=== PATIENT | female | born 1995 | race Caucasian/White ===

== ENCOUNTER 2017-08-14 | Inpatient (IN) | payer OTHER ==
[~2017-08-14] VITALS: Ht 170.2 cm; Wt 152.7 kg
[~2017-08-14] MED LIST: Adipex-P37.5 MG PO; BUSP15 PO; CEPH500 PO; CHOL10002 PO; IRON; METF500 PO; METF500C PO; MULVITMIND PO; RXDIPATR PO; RXONDA4ODT MM; Zofran Odt4 MG SL; [UNRECOGNIZED DRUG - OTHER] PO
[2017-08-14 00:59] LABS: BASOPHILS ABSOLUTE AUTO 0.01 K/mm3 (0.00-0.23); BASOPHILS PERCENT AUTO 0 % (0-2); EOSINOPHILS PERCENT AUTO 0 % (0-6); Hematocrit 43.4 % (33.0-51.0); Hemoglobin 13.6 g/dL (11.5-16.0); IMMATURE GRAN ABSOLUTE AUTO 0.04 K/mm3 (0.00-0.10); IMMATURE GRAN PERCENT AUTO 1 % (0-1); LYMPHOCYTES ABSOLUTE AUTO 1.06 K/mm3 (0.84-5.20); LYMPHOCYTES PERCENT AUTO 19 % (21-46); MONOCYTES ABSOLUTE AUTO 0.34 K/mm3 (0.16-1.47); MONOCYTES PERCENT AUTO 6 % (4-13); Mean Corpuscular HGB 26.4 pg (26.0-34.0); Mean Corpuscular HGB Conc 31.3 g/dL (31.5-36.5); Mean Corpuscular Volume 84 fL (80-100); Mean Platelet Volume 9.8 fL (9.1-12.4); NEUTROPHILS ABSOLUTE AUTO 4.05 K/mm3 (1.96-9.15); NEUTROPHILS PERCENT AUTO 74 % (41-73); Platelet Count 290 K/mm3 (150-400); RDW Coefficient Variation 15.3 % (11.7-14.2); RDW Standard Deviation 46.8 fL (35.1-46.3); Red Blood Cell Count 5.16 M/mm3 (3.80-5.20)
[2017-08-14 01:15] LABS: Alanine Aminotransfer (ALT/SGP 54 U/L (12-78); Albumin, Blood 3.2 g/dL (3.4-5.0); Albumin/Globulin Ratio 0.6 (0.8-1.8); Alk Phos 88 U/L (50-136); Anion Gap 8 mmol/L (6-16); Aspartate Aminotrans (AST/SGOT 74 U/L (12-37); Bilirubin, Total 0.2 mg/dL (0.1-1.0); Blood Urea Nitrogen 8 mg/dL (8-24); Bun/Creatinine Ratio 10.3 (12.0-20.0); CO2, Blood 25 mmol/L (21-32); Chloride, Blood 102 mmol/L (98-108); Creatinine, Blood 0.78 mg/dL (0.40-1.00); Globulin, Blood 5.5 g/dL (2.2-4.0); Glomerular Filtration Rate >60 (60-); Glucose, Blood 146 mg/dL (70-99); Potassium, Blood 3.9 mmol/L (3.5-5.5); Sodium, Blood 135 mmol/L (136-145); Total Protein, Blood 8.7 g/dL (6.4-8.2)
[2017-08-14 01:36] LABS: Influenza A Positive (NEGATIVE); Influenza B Negative (NEGATIVE)
[2017-08-14 02:23] LABS: Source, Urine Clean Catch
[2017-08-14 02:25] LABS: Bilirubin, Urine Neg (Neg); Blood, Urine 2+ (Neg); Glucose Qualitative, Urine Neg (Neg); Ketones, Urine 1+ (Neg); Leukocyte Esterase, Urine 2+ (Neg); Nitrite, Urine Neg (Neg); Protein, Urine 2+ (Neg); Urobilinogen, Urine NORM (Normal); pH, Urine 6.5 (5.0-8.0)
[2017-08-14 02:36] LABS: Amorphous Light (0-Heavy); Appearance, Urine Hazy (Clear); Bacteria Mod /hpf; Color, Urine Yellow (P-Yellow); Red Blood Cells, Urine 0-2 /hpf (0-2); Squamous Epithelial Cells Few /hpf (Few)
[2017-08-14 06:51] LABS: BASOPHILS PERCENT AUTO 0 % (0-2); EOSINOPHILS PERCENT AUTO 0 % (0-6); Hematocrit 38.7 % (33.0-51.0); IMMATURE GRAN ABSOLUTE AUTO 0.03 K/mm3 (0.00-0.10); IMMATURE GRAN PERCENT AUTO 1 % (0-1); LYMPHOCYTES ABSOLUTE AUTO 1.21 K/mm3 (0.84-5.20); LYMPHOCYTES PERCENT AUTO 32 % (21-46); MONOCYTES ABSOLUTE AUTO 0.32 K/mm3 (0.16-1.47); MONOCYTES PERCENT AUTO 8 % (4-13); Mean Corpuscular HGB 26.4 pg (26.0-34.0); Mean Corpuscular Volume 85 fL (80-100); Mean Platelet Volume 9.5 fL (9.1-12.4); NEUTROPHILS ABSOLUTE AUTO 2.25 K/mm3 (1.96-9.15); NEUTROPHILS PERCENT AUTO 59 % (41-73); Platelet Count 235 K/mm3 (150-400); RDW Coefficient Variation 15.5 % (11.7-14.2); RDW Standard Deviation 47.9 fL (35.1-46.3); Red Blood Cell Count 4.55 M/mm3 (3.80-5.20); White Blood Cell Count 3.81 K/mm3 (4.00-11.30)
[2017-08-14 07:13] LABS: Alanine Aminotransfer (ALT/SGP 44 U/L (12-78); Albumin, Blood 2.7 g/dL (3.4-5.0); Albumin/Globulin Ratio 0.6 (0.8-1.8); Alk Phos 75 U/L (50-136); Anion Gap 8 mmol/L (6-16); Aspartate Aminotrans (AST/SGOT 59 U/L (12-37); Bilirubin, Total 0.2 mg/dL (0.1-1.0); Blood Urea Nitrogen 7 mg/dL (8-24); Bun/Creatinine Ratio 10.9 (12.0-20.0); CO2, Blood 24 mmol/L (21-32); Calcium, Blood 7.4 mg/dL (8.5-10.1); Chloride, Blood 106 mmol/L (98-108); Creatinine, Blood 0.64 mg/dL (0.40-1.00); Globulin, Blood 4.6 g/dL (2.2-4.0); Glomerular Filtration Rate >60 (60-); Glucose, Blood 100 mg/dL (70-99); Potassium, Blood 3.6 mmol/L (3.5-5.5); Sodium, Blood 138 mmol/L (136-145); Total Protein, Blood 7.3 g/dL (6.4-8.2)
[2017-08-14 11:47] LABS: Source, Urine Clean Catch
[2017-08-14 11:53] LABS: Bilirubin, Urine Neg (Neg); Blood, Urine 3+ (Neg); Glucose Qualitative, Urine Neg (Neg); Ketones, Urine Neg (Neg); Leukocyte Esterase, Urine Neg (Neg); Nitrite, Urine Neg (Neg); Protein, Urine Neg (Neg); Urobilinogen, Urine NORM (Normal); pH, Urine 6.5 (5.0-8.0)
[2017-08-14 12:06] LABS: Appearance, Urine Clear (Clear); Color, Urine Yellow (P-Yellow)
[2017-08-14 12:07] LABS: Bacteria Not Seen /hpf; Red Blood Cells, Urine 0-2 /hpf (0-2); Squamous Epithelial Cells Few /hpf (Few); White Blood Cells, Urine Not Seen /hpf (0-5)
[2017-08-16 04:38] LABS: Hematocrit 38.9 % (33.0-51.0); Hemoglobin 12.1 g/dL (11.5-16.0); Mean Corpuscular HGB 26.3 pg (26.0-34.0); Mean Corpuscular HGB Conc 31.1 g/dL (31.5-36.5); Mean Corpuscular Volume 85 fL (80-100); Platelet Count 232 K/mm3 (150-400); RDW Coefficient Variation 15.7 % (11.7-14.2); RDW Standard Deviation 48.1 fL (35.1-46.3); White Blood Cell Count 6.18 K/mm3 (4.00-11.30)
[2017-08-16 04:58] LABS: Anion Gap 6 mmol/L (6-16); Blood Urea Nitrogen 7 mg/dL (8-24); Bun/Creatinine Ratio 12.2 (12.0-20.0); CO2, Blood 30 mmol/L (21-32); Calcium, Blood 8.2 mg/dL (8.5-10.1); Chloride, Blood 102 mmol/L (98-108); Creatinine, Blood 0.57 mg/dL (0.40-1.00); Glomerular Filtration Rate >60 (60-); Glucose, Blood 114 mg/dL (70-99); Potassium, Blood 3.9 mmol/L (3.5-5.5); Sodium, Blood 138 mmol/L (136-145)
[2017-08-16] MEDS ORDERED: ALBUTEROL INH (12:29)
[2017-08-16] MEDS ORDERED: DOXY100 PO (12:31)
[2017-08-16] MEDS ORDERED: HYDR1TAB94 PO (12:32)
[2017-08-16] MEDS ORDERED: OSEL75CA PO (12:33)
[2017-08-16] MEDS ORDERED: PRED20 PO (12:34)
== END 2017-08-16 15:20 | disposition home or self-care (01) | DRG 871 ==
LOC: ER → PCU 03:08 → ERHOLD 03:08 → PCU 10:55
PROVIDERS: Emergency Medicine; Internal Medicine
DX: A41.9 Sepsis, unspecified organism (principal); J10.00 Influenza due to other identified influenza virus with unspecified type of pneumonia; J96.01 Acute respiratory failure with hypoxia; Z68.42 Body mass index [BMI] 45.0-49.9, adult; E86.0 Dehydration; R19.7 Diarrhea, unspecified; E66.9 Obesity, unspecified; J45.909 Unspecified asthma, uncomplicated; Z88.0 Allergy status to penicillin
CPT/HCPCS: 36415; 71046; 80048; 80053; 81001; 81025; 83605; 84145; 85025; 85027; 87040; 87070; 87077; 87086; 87186; 87205; 87804; 93005; 93010; 94640; 94644; 94760; 94761; 96361; 96372; 96374; 96375; 99285; J0696; J1650; J2405; J2930; J3010; J7030

== ENCOUNTER 2021-02-25 19:26 | Inpatient (IN) | payer OTHER ==
[~2021-02-25] VITALS: Ht 175.3 cm; Wt 172.4 kg
[~2021-02-25 19:26] MED LIST changes: +ALBUTEROL INH; +DOXY100 PO; +HYDR1TAB94 PO; +OSEL75CA PO; +PRED20 PO
[2021-02-25 21:02] LABS: BASOPHILS ABSOLUTE AUTO 0.01 K/mm3 (0.00-0.23); BASOPHILS PERCENT AUTO 0 % (0-2); EOSINOPHILS PERCENT AUTO 0 % (0-6); Hematocrit 43.3 % (33.0-51.0); Hemoglobin 13.7 g/dL (11.5-16.0); IMMATURE GRAN ABSOLUTE AUTO 0.05 K/mm3 (0.00-0.10); IMMATURE GRAN PERCENT AUTO 1 % (0-1); LYMPHOCYTES ABSOLUTE AUTO 1.18 K/mm3 (0.84-5.20); LYMPHOCYTES PERCENT AUTO 17 % (21-46); MONOCYTES PERCENT AUTO 6 % (4-13); Mean Corpuscular HGB 25.8 pg (26.0-34.0); Mean Corpuscular HGB Conc 31.6 g/dL (31.5-36.5); Mean Corpuscular Volume 82 fL (80-100); Mean Platelet Volume 10.3 fL (9.1-12.4); NEUTROPHILS ABSOLUTE AUTO 5.29 K/mm3 (1.96-9.15); NEUTROPHILS PERCENT AUTO 76 % (41-73); Platelet Count 230 K/mm3 (150-400); RDW Coefficient Variation 16.1 % (11.7-14.2); RDW Standard Deviation 48.4 fL (35.1-46.3); Red Blood Cell Count 5.31 M/mm3 (3.80-5.20); White Blood Cell Count 6.93 K/mm3 (4.00-11.30)
[2021-02-25 21:21] LABS: Alanine Aminotransfer (ALT/SGP 65 U/L (12-78); Albumin, Blood 3.1 g/dL (3.4-5.0); Albumin/Globulin Ratio 0.6 (0.8-1.8); Alk Phos 91 U/L (50-136); Anion Gap 2 mmol/L (6-16); Aspartate Aminotrans (AST/SGOT 61 U/L (12-37); Bilirubin, Total 0.3 mg/dL (0.1-1.0); Blood Urea Nitrogen 8 mg/dL (8-24); Bun/Creatinine Ratio 11.7 (12.0-20.0); CO2, Blood 29 mmol/L (21-32); Calcium, Blood 8.2 mg/dL (8.5-10.1); Chloride, Blood 104 mmol/L (98-108); Creatinine, Blood 0.68 mg/dL (0.40-1.00); Glomerular Filtration Rate >60 (60-); Glucose, Blood 142 mg/dL (70-99); Potassium, Blood 4.5 mmol/L (3.5-5.5); Sodium, Blood 135 mmol/L (136-145); Total Protein, Blood 8.1 g/dL (6.4-8.2)
[2021-02-25 22:53] LABS: SARS-Cov-2 (COVID-19) PCR, MMC POSITIVE (NEGATIVE)
--- NOTE | 2021-02-26 03:46 | NUR ---
SHIFT SUMMARY NO ACUTE CHANGES TO REPORT OVERNIGHT. PT HAS SLEPT MOST OF THE NIGHT, SHE REMAINS HYPERTENSIVE. BP IMPROVING SOME WITH REPEAT CHECK AT MIDNIGHT, BUT HAS CREPT UP TO THE 180'S SBP AT THIS TIME. WILL MEDICATE FOR HTN PRN PER SEP. PT HAS RESTED IN BED MOST OF SHIFT AND IS UNMOTIVATED TO MOVE. PT ASKS STAFF TO MOVE BEDSIDE TRAY CLOSER TO HER WHEN IT IS WITHIN REACH FOR HER TO DO SO HERSELF. PT HOWEVER, PLESANT WITH CARE. ASSESSMENT REMAINS UNCHANGED. SEIZURE PRECAUTIONS IN PLACE. BED IN LOWEST POSITION, CALL LIGHT WITHIN REACH.
--- NOTE | 2021-02-26 16:12 | NUR ---
SHIFT SUMMARY PATIENT DENIES PAIN, NAUSEA. PATIENT REPORTS SHORTNESS OF BREATH WITH ACTIVITY. PATIENT IS INDEPENDENT IN ROOM. PATIENT IS ON 5L. MAINTAINING O2 SATS ABOVE 92%. PATIENT IS EATING AND DRINKING WELL. PATIENT IS PLEASANT AND COOPERATIVE WITH CARE.
[2021-02-27 06:34] LABS: Albumin, Blood 2.7 g/dL (3.4-5.0); Anion Gap 4 mmol/L (6-16); Blood Urea Nitrogen 10 mg/dL (8-24); Bun/Creatinine Ratio 15.7 (12.0-20.0); CO2, Blood 28 mmol/L (21-32); Calcium, Blood 8.7 mg/dL (8.5-10.1); Chloride, Blood 105 mmol/L (98-108); Creatinine, Blood 0.64 mg/dL (0.40-1.00); Glomerular Filtration Rate >60 (60-); Glucose, Blood 190 mg/dL (70-99); Phosphorus, Blood 3.4 mg/dL (2.5-4.9); Potassium, Blood 4.3 mmol/L (3.5-5.5); Sodium, Blood 137 mmol/L (136-145)
--- NOTE | 2021-02-27 06:36 | NUR ---
SHIFT SUMMARY A/O, ABLE TO MAKE NEEDS KNOWN. COOPERATIVE WITH CARE. CALLS AND ANSWERS QUESTIONS APPROPRIATELY. NO C/O PAIN/DISCOMFORT. BECOMES DYSPNEIC WITH ACTIVITY. REMAINED >90% ON 5L VIA NC T/O THE NIGHT. APPEARED TO REST MUCH OF THE NIGHT. EAGER TO GO HOME. NO ACUTE CHANGES NOTED OVERNIGHT. BED REMAINED IN LOWEST POSITION. CALL LIGHT AND BELONGINGS WITHIN REACH. CONTINUE WITH CURRENT PLAN OF CARE. REPORT TO ONCOMING RN.
--- NOTE | 2021-02-27 20:26 | NUR ---
a+o, call light in reach, saline locked, 3L via nc, pt has had a challenge keeping 02 stats up and o2 input down, currently resting on stomach and states she is breathing easily, report shared with noc nurse
--- NOTE | 2021-02-28 03:55 | NUR ---
SHIFT SUMMARY A/O, ABLE TO MAKE NEEDS KNOWN. COOPERATIVE WITH CARE. CALLS AND ANSWERS QUESTIONS APPRORIATELY. C/O PAIN/DISCOMFORT TO BACK R/T MENSTRUAL CRAMPS; MEDICATED PER EMAR AND GIVEN HEATING PAD. STATES RELIEF. APPEARED TO REST MUCH OF THE NIGHT. STATES BREATHING IMPROVING. BECOMING EASIER TO AMBULATE WITHOUT GETTING SO DYSPENIC. NO ACUTE CHANGES NOTED OVERNIGHT. BED REMAINS IN LOWEST POSITION. CALL LIGHT AND BELONGINGS WITHIN REACH. CONTINUE WITH CURRENT PLAN OF CARE. REPORT TO ONCOMING RN.
[2021-02-28 06:16] LABS: Hemoglobin 13.5 g/dL (11.5-16.0); Mean Corpuscular HGB 25.5 pg (26.0-34.0); Mean Corpuscular HGB Conc 30.7 g/dL (31.5-36.5); Mean Corpuscular Volume 83 fL (80-100); Mean Platelet Volume 10.3 fL (9.1-12.4); Platelet Count 280 K/mm3 (150-400); RDW Coefficient Variation 16.3 % (11.7-14.2); White Blood Cell Count 5.62 K/mm3 (4.00-11.30)
[2021-02-28 06:35] LABS: Albumin, Blood 2.8 g/dL (3.4-5.0); Anion Gap 7 mmol/L (6-16); Blood Urea Nitrogen 12 mg/dL (8-24); Bun/Creatinine Ratio 20.3 (12.0-20.0); CO2, Blood 28 mmol/L (21-32); Calcium, Blood 8.6 mg/dL (8.5-10.1); Chloride, Blood 104 mmol/L (98-108); Creatinine, Blood 0.59 mg/dL (0.40-1.00); Glomerular Filtration Rate >60 (60-); Glucose, Blood 160 mg/dL (70-99); Phosphorus, Blood 4.4 mg/dL (2.5-4.9); Sodium, Blood 139 mmol/L (136-145)
--- NOTE | 2021-02-28 17:33 | NUR ---
SHIFT SUMMARY PATIENT IS UPRIGHT IN BED ON 2L OF O2. SHE IS INDEPENDENT TO THE BATHROOM AND TOLERATES ACTIVITY WELL. SHE WILL RECIEVE HER THIRD ROUND OF REMDESIVIR TONIGHT AND IS TOLERATING THE MEDICATION WELL. DR. MENSAH DISCUSSED RELEASING THE PATTIENT TO BE DISCHARGED TOMORROW IF ALL CONTINUES WELL. WE DISCUSSED PATIENTS CONCERNS ON HOW TO KEEP HER [age] YEAR OLD SAFE, HOW TO KEEP IN QUARENTINE ONCE SHE IS RELEASED, AND THE BEST WAY TO PROTECT OTHERS ONCE SHE IS FREE TO LEAVE HER HOME. SHE EXPRESSES INTEREST IN DISCUSSING THE SAME TOPICS WITH RT.
--- NOTE | 2021-03-01 04:55 | NUR ---
SHIFT SUMMARY: PT REMAINS ON ISOLATION PER PROTOCOL. PT IS A&OX3 OOB TO VOID. PT IS PULSE OX STATING @96 % 2L NC. PT RECEIVED LAST DOSE REMDESVIR PT REPORTED NAUSEA IV ZOFRAN. PT RESTED THROUGHOUT THE SHIFT NO ACUTE SS/SX OF ACUTE DISTRESS. CALL LIGHT WITHIN BED LOWERED SIDE RAILS UP
--- NOTE | 2021-03-01 16:09 | NUR ---
THIS RN HAS DONE A 02 EVALUATION WHERE PATIENTS 02 LEVELS WERE 84% AT REST WITH NO OXYGEN, 81% WITH ACTIVITY WITH NO OXYGEN. PATIENT HAD OXYGEN INCREASED TO 3LITERS TO GET O2 SATS UP TO 94%
[2021-03-01] MEDS ORDERED: ACET325 PO (16:43)
[2021-03-01] MEDS ORDERED: ALBU90OI INH (16:45)
[2021-03-01] MEDS ORDERED: METF500 PO (16:46)
[2021-03-01] MEDS ORDERED: DEXA6 PO (16:46)
--- NOTE | 2021-03-01 18:34 | NUR ---
DISCHARGE SUMMARY PATIENT HAD NO ACUTE EVENTS DURING SHIFT. PATIENT HAS BEEN SATTING IN THE MID 90S ON 2 LITER OF 02 IN ROOM. PATIENT HAD A HOME 02 EVALUATION DONE IN CONFERRING WITH RT DAMIEN. PATIENT WAS EDUCATED ON MEDICATIONS AND DISCHARGE INSTRUCTIONS AND VERBALLY AGREED TO UNDERSTANDING. IRVING TY WHEELED OUT PATIENT WITH HOME 02.
== END 2021-03-01 18:15 | disposition home or self-care (01) | DRG 177 ==
LOC: ER 19:26 → MEDS 02-26 01:42
PROVIDERS: Internal Medicine; Physician Assistant; ADMIT Internal Medicine
PROC: 8E0ZXY6 Isolation (ICD-10-PCS; principal; 2021-02-26)
PROC: XW033E5 Introduction of Remdesivir Anti-infective into Peripheral Vein, Percutaneous Approach, New Technology Group 5 (ICD-10-PCS; 2021-02-26)
PROC: 3E0333Z Introduction of Anti-inflammatory into Peripheral Vein, Percutaneous Approach (ICD-10-PCS; 2021-02-26)
DX: U07.1 COVID-19 (principal); J12.82 Pneumonia due to coronavirus disease 2019; J96.01 Acute respiratory failure with hypoxia; Z68.43 Body mass index [BMI] 50.0-59.9, adult; R73.03 Prediabetes; E66.01 Morbid (severe) obesity due to excess calories; Z90.49 Acquired absence of other specified parts of digestive tract; Z98.891 History of uterine scar from previous surgery; Z88.0 Allergy status to penicillin; Z79.52 Long term (current) use of systemic steroids; Z79.899 Other long term (current) drug therapy
CPT/HCPCS: 36415; 71045; 80053; 80069; 82947; 85025; 85027; 85379; 93005; 93010; 94761; 94762; 96374; 99285-25; A9270; J1100; J1650; J2405; J7050; U0004